=== PATIENT | female | born 1970 | race Caucasian/White ===

== ENCOUNTER → 2018-11-08 | Outpatient (CLI) | payer MEDICAID ==
[~2018-11-08] MED LIST: ALBU17AE3 IH; ALBU8.5H2 IH; BUDE6HFA IH; CLON0.5T3 PO; CLON1TAB3 PO; DULO60CA6 PO; ESCI20TA38 PO; ESTR1TAB24 PO; FERR-57 PO; HYDR-690 PO; LAMO100T PO; LAMO25TA PO; OXYC-12 PO; TRZ100T PO
--- NOTE | 2018-11-08 14:59 | Diagnostic Imaging Report ---
Left knee at 0126 hours. INDICATION: Knee pain. 4 views were obtained. There are no prior studies available for comparison. FINDINGS: There is no fracture, dislocation or acute bony abnormality evident. However, there is fairly severe narrowing of the medial compartment of the knee joint and at least moderate narrowing of the patellofemoral space. The lateral compartment is well maintained. The soft tissues are unremarkable. IMPRESSION: 1. There is no evidence for an acute bony abnormality. 2. There is degenerative disease involving the knee joint with the medial compartment the most severely affected. Dictated by: Dictated on workstation # [id number]
== END ==
LOC: RAD FS 13:19
PROVIDERS: ATTEND Nurse Practitioner
DX: M17.12 Unilateral primary osteoarthritis, left knee (principal)
CPT/HCPCS: 73562

== ENCOUNTER 2019-04-29 08:48 | Day surgery (SDC) | payer MEDICAID ==
[2019-04-29] VITALS (20 sets, daily range): BP systolic 101–139; BP diastolic 71–94
[~2019-04-29] VITALS: Ht 157.5 cm; Wt 66.7 kg
[~2019-04-29 08:48] MED LIST changes: +HEParin (CATH LAB) 1,000 ML IV ONE; +LIDOCAINE 1% INJ 20 ML 20 ML VIAL ONE
[2019-04-29] MEDS ORDERED: NS IV 1000 ML 1,000 ML IV SCH (08:51)
[2019-04-29] MEDS ORDERED: ISOPROTERENOL 0.2 MG/D5W 50 ML IV ONE (09:00)
[2019-04-29] MEDS ORDERED: fentaNYL INJECTION 100 MCG/2 ML AMP ONE (09:12)
[2019-04-29] MEDS ORDERED: MIDAZOLAM 5 MG/5 ML (VERSED) VIAL ONE (09:12)
[2019-04-29] MEDS ORDERED: PROPOFOL DRIP (ICU) 100 ML IV ONE (09:12)
[2019-04-29] MEDS ORDERED: DILT120C53 PO (09:19)
[2019-04-29] MEDS ORDERED: DESV50TA14 PO (09:19)
[2019-04-29] MEDS ORDERED: ROPI3TAB4 PO (09:19)
[2019-04-29] MEDS ORDERED: LISI10TA2 PO (09:19)
[2019-04-29] MEDS ORDERED: FLUT9.9S NS (09:19)
[2019-04-29] MEDS ORDERED: FLUT1AER IH (09:19)
[2019-04-29] MEDS ORDERED: CYCL10TA9 PO (09:19)
[2019-04-29] MEDS ORDERED: TRAM50TA2 PO (09:19)
[2019-04-29] MEDS ORDERED: GABA-490 PO (09:19)
[2019-04-29 09:22] LABS: HEMOGLOBIN 13.9 G/DL (11.5-16.0); MEAN PLATELET VOLUME 10.1 FL (7.4-10.4); WHITE BLOOD COUNT 7.2 10^3/uL (4.3-11.0)
[2019-04-29 09:33] LABS: INR 0.9 (0.8-1.4); PROTHROMBIN TIME PATIENT 12.1 SEC (12.2-14.7)
[2019-04-29 09:39] LABS: ALANINE AMINOTRANSFERASE 8 U/L (0-55); ALBUMIN 4.4 GM/DL (3.2-4.5); ALKALINE PHOSPHATASE 122 U/L (40-136); BILIRUBIN,TOTAL 0.3 MG/DL (0.1-1.0); BUN/CREATININE RATIO 14; CALCIUM 9.2 MG/DL (8.5-10.1); CARBON DIOXIDE 24 MMOL/L (21-32); CHLORIDE 107 MMOL/L (98-107); CREATININE SERUM 0.78 MG/DL (0.60-1.30); GFR ESTIMATED > 60; GLUCOSE 81 MG/DL (70-105); POTASSIUM 4.1 MMOL/L (3.6-5.0); SODIUM 139 MMOL/L (135-145); TOTAL PROTEIN 7.6 GM/DL (6.4-8.2)
[2019-04-29] MEDS ORDERED: LIDOCAINE 1% INJ 20 ML 20 ML VIAL ONE (12:16)
--- NOTE | 2019-04-29 12:31 | Electrophysiology Procedure ---
EP Procedure DATE OF SERVICE:04/29/19 REFERRING PHYSICIAN: CARDIAC SHEARER OPERATOR: Tae Littlejohn MD, RS, CCDS. INDICATION: palpitations, dizziness, possible SVT PREOPERATIVE DIAGNOSIS: palpitations, dizziness, possible SVT POSTOPERATIVE DIAGNOSES: third-degree AV block. HISTORY: this is a 49-year-old lady who presented to me in the office with history of SVT. She complained of palpitations, shortness of breath and dizziness.The patient is planned for comprehensive EP study and ablation. PROCEDURE PERFORMED: 1. Comprehensive EP study with induction. 2. Fluoroscopy. 3. left atrial pacing and recording. 4. Drug infusion. 5. temporary pacemaker placement. COMPLICATION: None. ESTIMATED BLOOD LOSS: 10 mL. CONTRAST USED: None. FLUOROSCOPY TIME: 9.9 minutes. FLUOROSCOPY DOSE: 92 mgy. SPECIMENS: None. ANESTHESIA: Done by our anesthesia colleagues. ANTICOAGULATION: none. PROCEDURE IN DETAIL: After informed consent was taken, the patient was brought to the EP lab. Anesthesia was provided by our anesthesia colleagues. The patient was draped and prepped in the usual sterile fashion. The patient presented to the EP lab in sinus rhythm. Access was gained in the right femoral vein with a 6-Gibraltarian and an 8-Gibraltarian sheath. Left access in left femoral vein was gained with 5-Gibraltarian and 6-Gibraltarian sheath respectively. High right atrial catheter was an Kriss catheter, right ventricular catheter was placed, his catheter and the CS catheter were also placed. A comprehensive EP study was done including left atrial pacing and recording. AV Wenckebach cycle length at pacing 510 ms. Retrograde Wenckebach when pacing at 670 ms. RV pacing demonstrated concentric atrial activation. Complete heart block was noted with ventricular escape of 30 BPM. Systolic blood pressure of 80-90 mmHg. Intermittent second-degree AV block also noted which was AV mervin in origin. Isuprel was started at 2 g per minute. Atrial rate of 140 bpm with 2:1 AV block and ventricular rate of 70 BPM. left atrial pacing and recording did not demonstrate any left lateral pathway. Rapid atrial pacing with the without Isuprel infusion did not induce any tachycardia. Dual AV mervin physiology was not demonstrated during ERP measurements. AV mervin ERP was 600/490 ms. since the patient continued to be in 2-1 AV block with systolic blood pressure 90 mmHg, we decided to put in a temporary pacemaker. Temporary pacemaker was placed through one of the 6 Gibraltarian sheath in the right femoral vein. Good capture and sensitivity was confirmed. Set at back up rate of 50 bpm. At the end of the procedure we noted 1:1 AV conduction at atrial rate of 108 bpm. The patienttolerated the procedurewell and did not have any complication. The patientleft the lab in sinus rhythm. MEASUREMENTS/EP STUDY: AA interval 696 ms, AH interval 140 ms, HV interval 36 ms, MI interval 140 ms, QRS duration 84 ms, QT interval 290 ms, R-R interval 694 ms, AV Wenckebach when pacing at 510 ms, Retrograde Wenckebach when pacing at 660 ms, AV mervin ERP was 600/490 ms, Complete heart block and second-degree heart block was noted. PLAN: The patient will be kept in the ICU overnight. Permanent pacemaker likely tomorrow. Tae Littlejohn MD, RS, CCDS Cardiac Electrophysiology Melo LITTLEJOHN MD Apr 29, 2019 12:31
--- NOTE | 2019-04-29 12:31 | Cardiac Procedure Note-CS/ASA ---
Pre-Procedure Note Pre-Op Procedure Note H&P Reviewed The H&P was reviewed, patient examined and no changes noted. Date H&P Reviewed: Apr 29, 2019 Time H&P Reviewed: 09:30 Conscious Sedation Pre-Proced Time 09:30 ASA Score 3 For ASA 3 and 4: Consider anesthesia and medical clearance. Also, for patients with a history of failed moderate sedation consider anesthesia. Airway Lungs Heart ASA score ASA 1: a normal healthy patient ASA 2: a patient with a mild systemic disease (mid diabetes, controlled hypertension, obesity ASA 3: a patient with a severe systemic disease that limits activity (angina, COPD, prior Myocardial infarction) ASA 4: a patient with an incapacitating disease that is a constant threat to life (CHF, renal failure) ASA 5: a moribund patient not expected to survive 24 hrs. (ruptured aneurysm) ASA 6: a declared brain- patient whose organs are being harvested. For emergent operations, add the letter E after the classification Mallampati Classification Grade 1 Sedation Plan Analgesia, Amnesia, Plan communicated to team members, Discussed options with patient/fam, Discussed risks with patient/fam The patient is an appropriate candidate to undergo the planned procedure, sedation, and anesthesia. The patient immediately re-assessed prior to indication. Melo FARIAS MD Apr 29, 2019 12:31
[2019-04-29] MEDS ORDERED: PATIENT MAY USE OWN MEDS, ALL PO SCH (12:45)
[2019-04-29] MEDS ORDERED: diphenhydrAMINE 25 MG TAB (BENADRYL) PO PRN (15:00)
[2019-04-29] MEDS: NS IV 1000 ML 1,000 ML IV SCH ×2 (15:08→20:32)
[2019-04-29] MEDS: fentaNYL INJECTION 100 MCG/2 ML AMP IVP PRN ×2 (19:00→22:00)
[2019-04-30] VITALS (19 sets, daily range): BP systolic 105–151; BP diastolic 75–100
[2019-04-30] MEDS: fentaNYL INJECTION 100 MCG/2 ML AMP IVP PRN ×3 (01:44→09:54)
[2019-04-30] MEDS: NS IV 1000 ML 1,000 ML IV SCH ×2 (07:26→18:02)
--- NOTE | 2019-04-30 07:32 | Anesthesia-General Post-Op ---
MAC Patient Condition Mental Status/LOC: Same as Preop Cardiovascular: Satisfactory Nausea/Vomiting: Absent Respiratory: Satisfactory Pain: Controlled Complications: Absent Post Op Complications Complications None Follow Up Care/Instructions Patient Instructions None needed. Anesthesiology Discharge Order Discharge Order Patient is doing well, no complaints, stable vital signs, no apparent adverse anesthesia problems. No complications reported per nursing. MIKE NOVOA CRNA Apr 30, 2019 07:31
[2019-04-30] MEDS ORDERED: LIDOCAINE 1% INJ 20 ML 20 ML VIAL ONE (07:48)
[2019-04-30] MEDS ORDERED: HEParin (CATH LAB) 1,000 ML IV ONE (07:48)
--- NOTE | 2019-04-30 09:30 | NUR ---
TEMP PACER DC'D INTACT PER ME. SHEATH DC'D PER ME. MANUAL PRESSURE HELD FOR 8 MINUTES. DRSG APPLIED. NO BLEEDING OR HEMATOMA NOTED. INSTRUCTED LUZ BLAIR PATIENT CAN GET UP IN 45 MINUTES. #20 IV STARTED IN L FOREARM WITH ULTRASOUND, 1 ST ATTEMPT, STARTED FOR PACEMAKER INSERTION THIS AFTERNOON.
--- NOTE | 2019-04-30 13:31 | Cardiology Progress Note ---
Cardiology SOAP Progress Note Subjective: No symptoms. Objective: I&O/Vital Signs 04/30/19 04/30/19 04/30/19 04/30/19 02:00 03:00 04:00 04:00 Pulse 65 77 77 Resp 17 14 14 B/P (MAP) 109/75 (86) 105/87 (93) 121/87 (98) Pulse Ox 96 98 97 O2 Delivery Room Air Room Air Room Air Room Air 04/30/19 04/30/19 04/30/19 04/30/19 05:00 06:00 07:00 07:00 Pulse 68 70 63 60 Resp 24 12 12 B/P (MAP) 125/91 (102) 137/83 (101) 122/90 (101) Pulse Ox 97 96 O2 Delivery Room Air Room Air Room Air 04/30/19 04/30/19 04/30/19 04/30/19 08:00 08:00 09:00 10:00 Pulse 61 63 66 Resp 16 13 15 B/P (MAP) 129/90 (103) 137/89 (105) 141/92 (108) Pulse Ox 97 97 99 98 O2 Delivery Room Air Room Air Room Air Room Air 04/30/19 04/30/19 04/30/19 04/30/19 11:00 12:00 12:00 12:10 Pulse 61 59 57 Resp 13 20 B/P (MAP) 134/81 (98) 128/88 (101) Pulse Ox 95 96 O2 Delivery Room Air Room Air Room Air 04/29/19 23:59 Intake Total 100 ml Output Total 740 ml Balance -640 ml Weight (Pounds): 146 Weight (Ounces): 0.0 Weight (Calculated Kilograms): 66.603815 Constitutional: No appears stated age; AAO x 3; No apparent distress, No PERRL, No well-developed, No well-nourished, No other Respiratory: No accessory muscle use, No respiratory distress, No chest tender, No chest expansion is symmetric; chest is bilaterally symmetric; No lungs clear to percussion; lungs clear to auscultation; No crackles, No rhonchi, No rales, No stridor, No wheezing, No pleural rub, No other Cardiovascular: regular rate-rhythm; No irregularly irregular, No extra beats, No parasternal heave is noted, No JVD, No edema, No bradycardia, No tachycardia, No point of maximal impulse, No cardiac thrills are palpable; S1 and S2; No gallop/S3, No gallop/S4, No diastolic murmur, No systolic murmur, No friction rub, No click, No other Gastrointestional: No tender, No soft, No round, No distended, No pulsatile mass, No organomegaly, No guarding, No rebound, No tenderness, No hernia, No mass, No audible bowel sounds, No abnormal bowel sounds, No abdominal bruits, No spleenomegaly, No other Extremities: No normal range of motion, No non-tender, No normal inspection, No pedal edema, No calf tenderness, No normal capillary refill, No pelvis stable, No calf tenderness, No inflammation, No pedal edema, No slow capillary refill, No swelling, No other, No abrasion, No clubbing, No cyanosis, No ecchymosis, No laceration, No no lower extremity edema bilateral, No significant edema, No tenderness, No wound Neurologic/Psychiatric: no motor/sensory deficits, alert, normal mood/affect, oriented x 3 Skin: No normal color, No warm/dry, No cyanosis, No cool, No diaphoresis, No damp, No ecchymosis, No jaundice, No mottled, No pallor, No rash, No tattoos/piercings, No ulcerations, No rash on exposed areas, No ulcerations on exposed areas, No other A/P: Assessment/Dx: PSVT, Transient third-degree AV block, Second degree heart block, Plan: Status post EP study which demonstrated transient third-degree AV block with systolic blood pressure below 90 mmHg. Also prolonged second-degree heart block. Blood pressure also was below 100 mmHg. Temporary pacemaker was placed. Overnight patient continued to be in sinus rhythm with 1:1 AV conduction. Stable blood pressure. We will take out the temporary pacemaker today. Plan for permanent pacemaker later this afternoon. I discussed at length with the patient and informed consent was taken. All risks and complication were explained in detail including pneumothorax, bleeding, cardiac damage. Thank you for your consultation. Please call me if you have any questions. Tae Littlejohn MD, FACP, FACC, FSCAI, FHRS, CCDS Interventional Cardiology Cardiac Electrophysiology Vascular Medicine and Endovascular Interventions Melo LITTLEJOHN MD Apr 30, 2019 13:31
[2019-04-30] MEDS ORDERED: BACITRACIN INJECTION 50,000 UNIT, SODIUM CHLORIDE 0.9% IRRIGATIO 500 ML IR ONE ×2 (14:15)
[2019-04-30] MEDS ORDERED: ceFAZolin INJECTION 1,000 MG VIAL IV ONE (14:15)
[2019-04-30] MEDS ORDERED: ceFAZolin INJECTION 1,000 MG in WATER (STERILE) FOR INJECTION 10 ML IV NR (14:30)
[2019-04-30] MEDS ORDERED: BACITRACIN 50000 UNITS/500 ML NS IR ONE ×2 (14:30)
[2019-04-30] MEDS ORDERED: fentaNYL INJECTION 100 MCG/2 ML AMP ONE ×2 (16:08→16:34)
[2019-04-30] MEDS ORDERED: MIDAZOLAM 5 MG/5 ML (VERSED) VIAL ONE ×2 (16:08→16:34)
[2019-04-30] MEDS ORDERED: NS (IVPB) 100 ML ONE (16:22)
[2019-04-30] MEDS ORDERED: ceFAZolin INJECTION 2,000 MG ONE (16:22)
[2019-04-30] MEDS ORDERED: HYDROmorphone 2 MG/ML VIAL (DILAUDID) ONE (16:34)
[2019-04-30] MEDS ORDERED: NEO/POLY/BAC (NEOSPORIN) OINT 15 GM TUBE ONE (17:50)
[2019-04-30] MEDS ORDERED: NS IV 1000 ML 1,000 ML IV SCH (18:09)
--- NOTE | 2019-04-30 18:09 | Permanent Pacemaker Implant ---
Dual Chamber Pacemaker Implant PROCEDURE PHYSICIAN: Tae Littlejohn MD DUAL CHAMBER PACEMAKER IMPLANTATION: DATE OF PROCEDURE: 04/30/19 INDICATION: transient complete heart block. PREOPERATIVE DIAGNOSIS: transient complete heart block. POSTOPERATIVE DIAGNOSIS: successful dual-chamber permanent pacemaker implantation. HISTORY: this is a 49-year-old lady who has history of SVT. She presented for EP study and possible PSVT ablation. During EP study she was found to be in transient third-degree AV block. It then converted to AV mervin second-degree AV block. Blood pressure during third-degree AV block was 80 mmHg. Blood pressure during second-degree heart block was 90 mmHg. Isuprel was given which increased the atrial rate to 140 BPM with 2-1 AV block with ventricular rate of 70 BPM. Temporary pacemaker was placed. However at the end of the procedure patient AV conduction was 1:1. Dual-chamber permanent pacemaker was recommended. PROCEDURE PERFORMED: 1. Dual-chamber permanent pacemaker implantation. 2. Fluoroscopy. 3. Central venous access. ANESTHESIA: Local anesthesia, conscious sedation. COMPLICATIONS: None. ESTIMATED BLOOD LOSS:20 mL. SPECIMENS: None. ORAL ANTICOAGULATION: None. FLUOROSCOPY TIME: 6.2 min. FLUOROSCOPY DOSE: 20 mgy. CONTRAST DOSE: none. PROCEDURE DETAILS: The patient is a 49 female and after all of the patients questions were answered, the patient was brought to the EP Lab. The patient's left chest was prepped and draped in sterile fashion. A 2 inch horizontal incision was made 1 cm below the clavicle and dissection carried down to the pectoralis fascia. Using the modified Seldinger technique and under fluoroscopy guidance, the anterior aspect of the left axillary vein was accessed 2 times. The J wires were secured to the drapes with a mosquito clamp. A 7-St Helenian sheath was introduced over one of the J-wires. The RV lead was then inserted. The RV lead was directed across the tricuspid valve to the apical septal portion of the right ventricle. The position was checked in HIREN and FAUST views. The screw was deployed and the lead connected to the software programmer. Close sensing and pacing thresholds were obtained. Diaphragmatic pacing was ruled out. The lead was secured with 2-0 silk ties to the underlying muscle and fascia. Next, a 7-St Helenian sheath was introduced through the remaining J-wire. An atrial lead was then introduced and guided to the level of the right appendage. The screw was deployed and the lead was connected to the interrogator. Good sensing and pacing thresholds were obtained. Diaphragmatic pacing was ruled out. The leads were secured with 2-0 silk ties to the underlying muscle and fascia. The leads were connected to the device in a hermetic fashion. The device and leads were placed in the pocket. Aggressive irrigation with saline solution was done. The device was secured to the underlying muscle and fascia with a 2-0 silk tie. interrogation of the device revealed good integrity of all the leads and good connections. The wound was then closed using 2 layers. The first layer was interrupted 2-0 absorbable Vicryl suture. The last layer was a single subcuticular layer with 4- 0 Vicryl suture. Half inch Steri-Strips and a small dressing were then applied to the wound. The patient tolerated the procedure well and was returned to the recovery room in stable condition with stable vital signs. DEVICE INFORMATION: Medtronic IPG [id number] Ella JARAMILLO, serial number RN [id number]. RA LEAD: model number [id number], length 45, serial number BB [id number]. Medtronic. RV LEAD: model number [id number], length 52, serial number PEJ and [id number], Medtronic. PER-OPERATIVE DEVICE INTERROGATION: right atrium: 1.375 at 0.4 ms, impedance 532 ohms, P-wave 1.4 mV. Right ventricle: 0.375 at 0.4 ms, impedance 437 ohms, R-wave 7.4 mV. IMMEDIATE POSTOPERATIVE DEVICE INTERROGATION: right atrium: P-wave 1.5 mV. Pacing impedance 532 ohms. Pacing threshold 1.0 V at 0.4 ms. RV: R wave 8.5 mV. Pacing impedance 456 ohms. Pacing threshold 0.5 V at 0.4 ms. On the right atrial lead far field R-wave was noted. This fell in the blanking period. PLAN: The patient transferred to the ICU. We will continue with two more doses of IV antibiotics. We will check a chest x-ray and interrogate the device in the morning. The patient will continue on oral antibiotics for 5 days. Tae Littlejohn MD, RS, CCDS Cardiac Electrophysiology Melo LITTLEJOHN MD Apr 30, 2019 18:09
--- NOTE | 2019-04-30 18:09 | Cardiac Procedure Note-CS/ASA ---
Pre-Procedure Note Pre-Op Procedure Note H&P Reviewed The H&P was reviewed, patient examined and no changes noted. Date H&P Reviewed: Apr 30, 2019 Time H&P Reviewed: 16:00 Conscious Sedation Pre-Proced Time 16:00 ASA Score 3 For ASA 3 and 4: Consider anesthesia and medical clearance. Also, for patients with a history of failed moderate sedation consider anesthesia. Airway Lungs Heart ASA score ASA 1: a normal healthy patient ASA 2: a patient with a mild systemic disease (mid diabetes, controlled hypertension, obesity ASA 3: a patient with a severe systemic disease that limits activity (angina, COPD, prior Myocardial infarction) ASA 4: a patient with an incapacitating disease that is a constant threat to life (CHF, renal failure) ASA 5: a moribund patient not expected to survive 24 hrs. (ruptured aneurysm) ASA 6: a declared brain- patient whose organs are being harvested. For emergent operations, add the letter E after the classification Mallampati Classification Grade 1 Sedation Plan Analgesia, Amnesia, Plan communicated to team members, Discussed options with patient/fam, Discussed risks with patient/fam The patient is an appropriate candidate to undergo the planned procedure, sedation, and anesthesia. The patient immediately re-assessed prior to indication. Melo FARIAS MD Apr 30, 2019 18:09
[2019-04-30] MEDS ORDERED: PATIENT MAY USE OWN MEDS, ALL PO SCH (18:15)
--- NOTE | 2019-04-30 18:40 | NUR ---
Pt returned from pacemaker placement. Sling placed on Lt arm et ice pack to drsg. Drsg on Lt upper chest, c/d/i. Pt ambulated to void. Sat dropped to 72%. Pt placed on O2 2L NC et sat instantly increased to 95%. Will continue to monitor
--- NOTE | 2019-04-30 18:46 | Diagnostic Imaging Report ---
INDICATION: Pacemaker placement. COMPARISON: None. FINDINGS: Single view of the chest demonstrates cardiac enlargement without overt pulmonary edema. There is no pneumothorax or effusion. The cardiac pacemaker appears to be well positioned. IMPRESSION: No post-procedure pneumothorax. Dictated by: Dictated on workstation # [id number]
[2019-04-30] MEDS: ceFAZolin INJECTION 1,000 MG in WATER (STERILE) FOR INJECTION 10 ML IV SCH (21:39)
[2019-04-30] MEDS ORDERED: ACETAMINOPHEN 325 MG TABLET ONE (22:50)
[2019-04-30] MEDS: ACETAMINOPHEN 325 MG TABLET PO PRN (22:58)
[2019-05-01] VITALS: BP 140/86
[2019-05-01 02:00] VITALS: BP 125/90
[2019-05-01] MEDS: fentaNYL INJECTION 100 MCG/2 ML AMP IVP PRN (02:32)
[2019-05-01 03:57] LABS: HEMOGLOBIN 12.6 G/DL (11.5-16.0); MEAN PLATELET VOLUME 10.3 FL (7.4-10.4); RED CELL DISTRIBUTION WIDTH 12.7 % (10.0-14.5); WHITE BLOOD COUNT 10.8 10^3/uL (4.3-11.0)
[2019-05-01 04:00] VITALS: BP 140/91
[2019-05-01 04:26] LABS: ALANINE AMINOTRANSFERASE 6 U/L (0-55); ALBUMIN 3.5 GM/DL (3.2-4.5); ALKALINE PHOSPHATASE 107 U/L (40-136); BILIRUBIN,TOTAL 0.2 MG/DL (0.1-1.0); BUN/CREATININE RATIO 13; CALCIUM 8.9 MG/DL (8.5-10.1); CARBON DIOXIDE 19 MMOL/L (21-32); CHLORIDE 111 MMOL/L (98-107); CREATININE SERUM 0.71 MG/DL (0.60-1.30); GFR ESTIMATED > 60; GLUCOSE 91 MG/DL (70-105); POTASSIUM 4.1 MMOL/L (3.6-5.0); SODIUM 140 MMOL/L (135-145); TOTAL PROTEIN 6.3 GM/DL (6.4-8.2)
[2019-05-01 06:00] VITALS: BP 135/98
[2019-05-01] MEDS: ceFAZolin INJECTION 1,000 MG in WATER (STERILE) FOR INJECTION 10 ML IV SCH (07:03)
[2019-05-01] MEDS: NS IV 1000 ML 1,000 ML IV SCH (07:05)
[2019-05-01] MEDS: ACETAMINOPHEN 325 MG TABLET PO PRN (08:13)
[2019-05-01] MEDS ORDERED: CEPH-507 PO (09:50)
[2019-05-01 10:17] VITALS: BP 152/87
--- NOTE | 2019-05-01 13:21 | Cardiology Discharge Summary ---
Diagnosis/Chief Complaint Date of Admission 04/29/2019 Date of Discharge 05/01/2019 Admission Diagnosis 1. PSVT 2. Third-degree AV block with hypotension Final/Discharge Diagnosis Third-degree AV block, successful dual-chamber permanent pacemaker. Chief Complaint/HPI Chief Complaint/HPI This is a 49-year-old lady who has history of SVT. She had complains of palpitations and dizziness. EP study was planned. Discharge Summary Procedures 04/29/2019 EP study showed third-degree AV block with hypotension. Converted to second-degree AV block with borderline hypotension. No significant improvement with Isuprel. Temporary pacemaker was placed. Atrial tachycardia was not induced on Isuprel. Dual AV mervin physiology was not demonstrated. Left atrial pacing and recording did not demonstrate a left-sided bypass tract. Dual-chamber permanent pacemaker was done on 04/30/2019. Discharge Physical Examination Stable. Hospital Course Was the Problem List Reviewed?: Yes Unremarkable. Discussion & Recommendations Discussion Discharge instructions were discussed at length. Discharge took over 30 minutes to complete. Antibiotics for 5 days. Follow up appt.: Wound check with RN in one week. Dr. Littlejohn for device interrogation in a month. Dicharge Diet: Regular Diet Activity as Tolerated: Yes Home Medications Reviewed patient Home Medication Reconciliation performed by pharmacy medication reconciliations copier field service technician and/or nursing. Patients Allergies have been reviewed. Discharge Home Medications: Reviewed and agree with Discharge Medication list on patient's Discharge Instruction sheet Condition at discharge Stable. Instructions to patient/family Discussed at length with the patient. Melo LITTLEJOHN MD May 01, 2019 13:21
--- NOTE | 2019-05-01 13:22 | Discharge Inst-Post Device ---
Discharge Inst-Post Device Reconcile Patient Problems Problems Reviewed?: Yes Follow up/Plan Dr Littlejohn Heart Healthy Diet Do not lift arm on side of device placement above head for 4 weeks. Do not push and pull heavy objects for 4 weeks. Activity as tolerated. Leave dressing on until follow up at the office. Melo LITTLEJOHN MD May 01, 2019 13:22
== END 2019-05-01 10:16 | disposition home or self-care (01) ==
LOC: CATH 08:48 → ICU 13:22 → CATH 05-01 10:16
PROVIDERS: ATTEND Internal Medicine Interventional Cardiology
DX: I44.2 Atrioventricular block, complete (principal); I95.9 Hypotension, unspecified; I47.1 Supraventricular tachycardia; I10 Essential (primary) hypertension; J44.9 Chronic obstructive pulmonary disease, unspecified; F17.210 Nicotine dependence, cigarettes, uncomplicated; Z79.899 Other long term (current) drug therapy; Z88.5 Allergy status to narcotic agent
CPT/HCPCS: 33208; 33210; 36415; 71045; 80053; 85027; 85610; 85730; 87081; 93005; 93620; 93621; 93623

== ENCOUNTER 2019-05-20 14:06 | Emergency (ER) | payer MEDICAID ==
[~2019-05-20] VITALS: Ht 158 cm; Wt 62.0 kg
[~2019-05-20 14:06] MED LIST changes: +CEPH-507 PO; +CYCL10TA9 PO; +DESV50TA14 PO; +DILT120C53 PO; +FLUT1AER IH; +FLUT9.9S NS; +GABA-490 PO; -HEParin (CATH LAB) 1,000 ML IV ONE; -LIDOCAINE 1% INJ 20 ML 20 ML VIAL ONE; +LISI10TA2 PO; +ROPI3TAB4 PO; +TRAM50TA2 PO
--- NOTE | 2019-05-20 16:00 | ED Chest Pain ---
General Chief Complaint: Cardiac/General Problems Stated Complaint: PACE MAKER SHOCKING PT; CHEST PAIN Source: patient Exam Limitations: no limitations History of Present Illness Date Seen by Provider: May 20, 2019 Time Seen by Provider: 12:00 Initial Comments Patient is a 49-year-old female presents from work with left-sided scapular pain started while sitting. Pain is described as intense, aching lasting less than 30 seconds. Following which, patient reports feeling generally weak, malaise with nausea take. Denies chest pain shortness of breath, vomiting, arm or paresthesias. No abdominal pain. No other acute symptoms or complaints. Denies history of CAD. Cardiac neck risk factors include dyslipidemia and hypertension. Patient is a nonsmoker. Timing/Duration: 1-3 hours Severity/Quality: moderate Location: shoulder Radiation: no radiation Activities at Onset: none Prior CP/Workup: no prior chest pain NTG SL CONSUMER EDUCATOR: No Associated Symptoms: back pain, diaphoresis, dizziness, nausea/vomiting, weakness Allergies and Home Medications Allergies Coded Allergies: aspirin (Unverified Allergy, Unknown, RASH, 04/29/19) codeine (Verified Allergy, Unknown, 04/29/19) Home Medications Albuterol 8.5 Gm Hfa.aer.ad, 2 PUFF IH Q6H PRN, (Reported) PRN SHORTNESS OF BREATH Cephalexin 500 Mg Capsule, 500 MG PO TID Prescribed by: HANDY MENDEZ on 05/01/19 0950 Cyclobenzaprine HCl 10 Mg Tablet, 10 MG PO PRN, (Reported) Desvenlafaxine 50 Mg Tab.er.24, 50 MG PO DAILY, (Reported) Diltiazem HCl 120 Mg Cap.er.24h, 120 MG PO BID, (Reported) Fluticasone Propionate 9.9 Ml [place].susp, 1 SPRAY NS DAILY PRN for PRN, (Reported) 1 SPRAY EACH NARE DAILY Fluticasone/Vilanterol 1 Each Blst.w.dev, 1 EACH IH DAILY, (Reported) Gabapentin 400 Mg Capsule, 400 MG PO TID, (Reported) Lisinopril 10 Mg Tablet, 10 MG PO DAILY, (Reported) Ropinirole HCl 3 Mg Tablet, 3 MG PO HS, (Reported) Tramadol HCl 50 Mg Tablet, 50 MG PO PRN, (Reported) Trazodone Hcl 100 Mg Tab, 100 MG PO HS, (Reported) Patient Home Medication List Home Medication List Reviewed: Yes Review of Systems Review of Systems Constitutional: see HPI EENTM: See HPI Respiratory: See HPI Cardiovascular: See HPI Gastrointestinal: See HPI Genitourinary: See HPI Musculoskeletal: see HPI Psychiatric/Neurological: See HPI Endocrine: See HPI Hematologic/Lymphatic: See HPI Past Nocwiim-Azegpi-Bmpugy Hx Past Med/Social Hx: Reviewed Nursing Past Med/Soc Hx Patient Social History Type Used: Cigarettes Recent Hopitalizations: No Immunizations Up To Date Tetanus Booster (TDap): More than 5yrs Date of Pneumonia Vaccine: Feb 20, 2013 Past Medical History Hysterectomy Respiratory: Yes Asthma, COPD Cardiac: No Neurological: Yes Reproductive Disorders: Yes (MILEY III) Genitourinary: No Gastrointestinal: No Cancer: No Anxiety, Bipolar, Depression Blood Disorders: No Physical Exam Vital Signs Capillary Refill : Height, Weight, BMI Height: 5'2.00" Weight: 147lbs. 0.0oz. 66.649817ps; 24.7 BMI Method: General Appearance: No Apparent Distress, WD/WN HEENT: PERRL/EOMI, Normal ENT Inspection, Pharynx Normal Neck: Full Range of Motion, Non Tender, Supple Respiratory: Lungs Clear, Normal Breath Sounds Cardiovascular: Regular Rate, Rhythm, No Edema Gastrointestinal: Normal Bowel Sounds Neurologic/Psychiatric: Alert, Oriented x3 Focused Exam Sepsis Stage: Ruled Out Departure Communication (Admissions) EKg, lab and imaging reviewed. No acute findings. Patient has a heart score of 1. Repeat troponin is negative. Recommend supportive care watchful waiting and PCP follow-up. Return precautions reviewed. Patient verbalizes understanding. Discharge instructions prior to departure. Impression Primary Impression: Chest pain Disposition: HOME, SELF-CARE Condition: Against Medical Advice Departure-Patient Inst. Referrals: [facility] (PCP/Family) Primary Care Physician Patient Instructions: Chest Pain (DC) Add. Discharge Instructions: You were evaluated in the emergency department for left shoulder pain and weakness. EKG lab and imaging studies were performed and are nondiagnostic. Cause of your symptoms has not been determined. Please go home and rest, increase fluids and follow-up with your PCP in 3-4 days for reevaluation. Return to ED if new or worsening symptoms. All discharge instructions reviewed with patient and/or family. Voiced understanding. KUSUM GUTIERREZ DO May 20, 2019 16:00
--- NOTE | 2019-05-20 16:25 | Diagnostic Imaging Report ---
INDICATION: Chest pain. COMPARISON: 04/30/2019. FINDINGS: A single frontal view of the chest demonstrates normal heart size and pulmonary vascularity. The lungs are well aerated and clear. No large pleural effusion or pneumothorax is seen. The visualized osseous structures show no acute abnormalities. A left-sided dual-lead pacemaker is noted. IMPRESSION: No acute cardiopulmonary process. Dictated by: Dictated on workstation # [id number]
[2019-05-20 16:42] LABS: BUN/CREATININE RATIO 10; CALCIUM 10.1 MG/DL (8.5-10.1); CARBON DIOXIDE 28 MMOL/L (21-32); CHLORIDE 100 MMOL/L (98-107); CREATININE SERUM 0.96 MG/DL (0.60-1.30); GFR ESTIMATED > 60; GLUCOSE 96 MG/DL (70-105); POTASSIUM 4.9 MMOL/L (3.6-5.0); SODIUM 139 MMOL/L (135-145)
[2019-05-20 16:43] LABS: ALANINE AMINOTRANSFERASE 9 U/L (0-55); ALBUMIN 4.6 GM/DL (3.2-4.5); ALKALINE PHOSPHATASE 108 U/L (40-136); BILIRUBIN,TOTAL < 0.2 MG/DL (0.1-1.0); LIPASE 25 U/L (8-78); TOTAL PROTEIN 7.4 GM/DL (6.4-8.2)
[2019-05-20 16:44] LABS: HEMOGLOBIN 13.5 G/DL (11.5-16.0); MEAN PLATELET VOLUME 10.7 FL (7.4-10.4); RED CELL DISTRIBUTION WIDTH 12.3 % (10.0-14.5); WHITE BLOOD COUNT 8.6 10^3/uL (4.3-11.0)
[2019-05-20 17:15] VITALS: BP 121/78
--- NOTE | 2019-05-20 17:30 | ED Chest Pain ---
General Chief Complaint: Cardiac/General Problems Stated Complaint: PACE MAKER SHOCKING PT; CHEST PAIN Source: patient Exam Limitations: no limitations History of Present Illness Date Seen by Provider: May 20, 2019 Time Seen by Provider: 13:20 Initial Comments Patient is a 49-year-old female with history of PSVT with recent cardiac abl ation and dual-chamber pacemaker insertion on on 04/30/[address] Littlejohn presents with intermittent stinging type sensation over her left breast. Patient states symptoms began this morning were brief lasting less than a second with 1-2 episodes every 5 minutes, then one episode every 20 minutes. Symptoms have since resolved. Patient denies chest pain palpitation shortness of breath. Denies dizziness or lightheadedness. No leg pain or swelling. No other acute symptoms or complaints. Timing/Duration: 1-3 hours Severity/Quality: mild Location: other Radiation: no radiation Activities at Onset: none Prior CP/Workup: cardiac cath ASA po VALET PARKER: No NTG SL VALET PARKER: No Allergies and Home Medications Allergies Coded Allergies: aspirin (Unverified Allergy, Unknown, RASH, 04/29/19) codeine (Verified Allergy, Unknown, 04/29/19) Home Medications Albuterol 8.5 Gm Hfa.aer.ad, 2 PUFF IH Q6H PRN, (Reported) PRN SHORTNESS OF BREATH Cephalexin 500 Mg Capsule, 500 MG PO TID Prescribed by: HANDY MENDEZ on 05/01/19 0950 Cyclobenzaprine HCl 10 Mg Tablet, 10 MG PO PRN, (Reported) Desvenlafaxine 50 Mg Tab.er.24, 50 MG PO DAILY, (Reported) Diltiazem HCl 120 Mg Cap.er.24h, 120 MG PO BID, (Reported) Fluticasone Propionate 9.9 Ml [place].susp, 1 SPRAY NS DAILY PRN for PRN, (Reported) 1 SPRAY EACH NARE DAILY Fluticasone/Vilanterol 1 Each Blst.w.dev, 1 EACH IH DAILY, (Reported) Gabapentin 400 Mg Capsule, 400 MG PO TID, (Reported) Lisinopril 10 Mg Tablet, 10 MG PO DAILY, (Reported) Ropinirole HCl 3 Mg Tablet, 3 MG PO HS, (Reported) Tramadol HCl 50 Mg Tablet, 50 MG PO PRN, (Reported) Trazodone Hcl 100 Mg Tab, 100 MG PO HS, (Reported) Patient Home Medication List Home Medication List Reviewed: Yes Review of Systems Review of Systems Constitutional: see HPI EENTM: See HPI Respiratory: See HPI Cardiovascular: See HPI Gastrointestinal: See HPI Genitourinary: See HPI Musculoskeletal: see HPI Psychiatric/Neurological: See HPI Endocrine: See HPI Hematologic/Lymphatic: See HPI Past Kntzfez-Xbvfdq-Dmmkll Hx Past Med/Social Hx: Reviewed Nursing Past Med/Soc Hx Patient Social History Type Used: Cigarettes Recent Hopitalizations: No Immunizations Up To Date Tetanus Booster (TDap): More than 5yrs Date of Pneumonia Vaccine: Feb 20, 2013 Past Medical History Hysterectomy Respiratory: Yes Asthma, COPD Cardiac: No Neurological: Yes Reproductive Disorders: Yes (MILEY III) Genitourinary: No Gastrointestinal: No Cancer: No Anxiety, Bipolar, Depression Blood Disorders: No Physical Exam Vital Signs Capillary Refill : Height, Weight, BMI Height: 5'2.00" Weight: 147lbs. 0.0oz. [id number]; 24.7 BMI Method: General Appearance: No Apparent Distress, WD/WN HEENT: PERRL/EOMI, Normal ENT Inspection, Pharynx Normal Neck: Supple Respiratory: Chest Non Tender, Lungs Clear, Normal Breath Sounds Cardiovascular: Regular Rate, Rhythm, No Edema, No Gallop Gastrointestinal: Non Tender, Soft Extremity: Normal Capillary Refill, Normal Inspection Neurologic/Psychiatric: Alert, Oriented x3, manager mail II-XII Norm as Tested Skin: Normal Color, Warm/Dry Progress/Results/Core Measures Results/Orders Lab Results Laboratory Tests Test 05/20/19 15:00 Range/Units White Blood Count 8.6 4.3-11.0 10^3/uL Red Blood Count 4.60 4.35-5.85 10^6/uL Hemoglobin 13.5 11.5-16.0 G/DL Hematocrit 41 35-52 % Mean Corpuscular Volume 89 80-99 FL Mean Corpuscular Hemoglobin 29 25-34 PG Mean Corpuscular Hemoglobin Concent 33 32-36 G/DL Red Cell Distribution Width 12.3 10.0-14.5 % Platelet Count 280 130-400 10^3/uL Mean Platelet Volume 10.7 H 7.4-10.4 FL Sodium Level 139 135-145 MMOL/L Potassium Level 4.9 3.6-5.0 MMOL/L Chloride Level 100 98-107 MMOL/L Carbon Dioxide Level 28 21-32 MMOL/L Anion Gap 11 5-14 MMOL/L Blood Urea Nitrogen 10 7-18 MG/DL Creatinine 0.96 0.60-1.30 MG/DL Estimat Glomerular Filtration Rate > 60 BUN/Creatinine Ratio 10 Glucose Level 96 70-105 MG/DL Calcium Level 10.1 8.5-10.1 MG/DL Corrected Calcium 8.5-10.1 MG/DL Total Bilirubin < 0.2 0.1-1.0 MG/DL Aspartate Amino Transf (AST/SGOT) 18 5-34 U/L Alanine Aminotransferase (ALT/SGPT) 9 0-55 U/L Alkaline Phosphatase 108 40-136 U/L Troponin I < 0.30 <0.30 NG/ML Total Protein 7.4 6.4-8.2 GM/DL Albumin 4.6 H 3.2-4.5 GM/DL Lipase 25 8-78 U/L My Orders Orders - KUSUM GUTIERREZ DO Cbc No Diff (05/20/19 16:05) Comprehensive Metabolic Panel (05/20/19 16:05) Lipase (05/20/19 16:05) Ekg Tracing (05/20/19 16:05) Troponin I (05/20/19 16:05) Chest 1 View Ap/Pa Only (05/20/19 16:05) Departure Communication (Admissions) EKG, chest x-ray labs reviewed. Patient asymptomatic emergency department. Case discussed in detail with Dr. Littlejohn. Recommendations are for the patient to contact his office tomorrow to arrange for outpatient pacemaker interrogation and follow-up in office this week. Return precautions reviewed. Patient verbalizes understanding and agreement discharge instructions prior to departure. Impression Primary Impression: Chest pain Disposition: HOME, SELF-CARE Condition: Improved Departure-Patient Inst. Referrals: [facility] (PCP) Primary Care Physician Patient Instructions: Chest Pain (DC) Add. Discharge Instructions: Please call Dr. Littlejohn's office in the morning and tell his office S your device type and schedule a follow-up appointment in the next will one to 2 days to have your pacemaker interrogated and to see Dr. Littlejohn. All discharge instructions reviewed with patient and/or family. Voiced unde rstanding. KUSUM GUTIERREZ DO May 20, 2019 17:30
== END 2019-05-20 17:15 | disposition home or self-care (01) ==
LOC: EDUNIT# 14:06 → ER FS 14:07
DX: R07.9 Chest pain, unspecified (principal); J44.9 Chronic obstructive pulmonary disease, unspecified; F31.9 Bipolar disorder, unspecified; F41.9 Anxiety disorder, unspecified; Z95.0 Presence of cardiac pacemaker; Z88.6 Allergy status to analgesic agent; Z88.5 Allergy status to narcotic agent; Z90.710 Acquired absence of both cervix and uterus
CPT/HCPCS: 36415; 71045; 80053; 83690; 84484; 85027; 93005

== ENCOUNTER 2019-09-04 15:01 | Emergency (ER) | payer SELFPAY ==
[~2019-09-04] VITALS: Ht 157.5 cm; Wt 61.4 kg
[2019-09-04] MEDS: NITROGLYCERIN 0.4 MG SL TABS BTL 25'S SL PRN ×2 (15:47→15:55)
--- NOTE | 2019-09-04 15:51 | Diagnostic Imaging Report ---
EXAMINATION: Chest 1 view HISTORY: Chest pain. COMPARISON: 05/20/2019 FINDINGS: A left pectoral dual-chamber pacemaker is in place. The lung volumes are normal. No focal consolidation is seen. No large pleural effusion or pneumothorax is seen. The cardiomediastinal silhouette is normal in size and contour. No acute osseous abnormality is seen. IMPRESSION: 1. No acute pleuroparenchymal process. Dictated by: Dictated on workstation # [id number]
[2019-09-04 15:56] LABS: INR 0.9 (0.8-1.4); PROTHROMBIN TIME PATIENT 12.2 SEC (12.2-14.7)
[2019-09-04 16:03] LABS: HEMATOCRIT 38 % (35-52); HEMOGLOBIN 12.9 G/DL (11.5-16.0); MEAN CORPUSCULAR HEMOGLOBIN 29 PG (25-34); MEAN CORPUSCULAR HGB CONC 34 G/DL (32-36); MEAN CORPUSCULAR VOLUME 86 FL (80-99); MEAN PLATELET VOLUME 10.4 FL (7.4-10.4); PLATELET COUNT 308 10^3/uL (130-400); WHITE BLOOD COUNT 8.7 10^3/uL (4.3-11.0)
[2019-09-04 16:04] LABS: BASOPHILS # (AUTO) 0.1 10^3/uL (0.0-0.1); BASOPHILS % (AUTO) 1 % (0-10); EOSINOPHILS # (AUTO) 0.2 10^3/uL (0.0-0.3); EOSINOPHILS % (AUTO) 2 % (0-10); LYMPHOCYTES # (AUTO) 2.3 X 10^3 (1.0-4.0); LYMPHOCYTES % (AUTO) 26 % (12-44); MONOCYTES # (AUTO) 0.5 X 10^3 (0.0-1.0); MONOCYTES % (AUTO) 6 % (0-12); NEUTROPHILS # (AUTO) 5.7 X 10^3 (1.8-7.8); NEUTROPHILS % (AUTO) 65 % (42-75)
[2019-09-04 16:09] LABS: ALKALINE PHOSPHATASE 98 U/L (40-136); BILIRUBIN,TOTAL 0.2 MG/DL (0.1-1.0); BUN/CREATININE RATIO 8; CALCIUM 9.2 MG/DL (8.5-10.1); CARBON DIOXIDE 24 MMOL/L (21-32); CHLORIDE 107 MMOL/L (98-107); CREATININE SERUM 0.77 MG/DL (0.60-1.30); GFR ESTIMATED > 60; GLUCOSE 99 MG/DL (70-105); MAGNESIUM 2.2 MG/DL (1.6-2.4); POTASSIUM 4.1 MMOL/L (3.6-5.0); SODIUM 143 MMOL/L (135-145)
[2019-09-04 16:10] LABS: ALANINE AMINOTRANSFERASE 11 U/L (0-55); ALBUMIN 4.2 GM/DL (3.2-4.5); LIPASE 26 U/L (8-78); TOTAL PROTEIN 6.9 GM/DL (6.4-8.2)
--- NOTE | 2019-09-04 16:14 | ED Chest Pain ---
General Chief Complaint: Chest Pain Stated Complaint: CHEST TIGHTNESS,LIGHT HEADED Nursing Triage Note: Patient reports chest pain since yesterday, states her pain has worsened today, states she has been out of her heart medication for 5 days and out of her valium prescription for 1 month. Nursing Sepsis Screen: No Definite Risk Source: patient History of Present Illness Date Seen by Provider: Sep 04, 2019 Time Seen by Provider: 15:15 Initial Comments Patient came into the emergency room with complaint of having left-sided chest pressure which was started yesterday and got worse since this morning. She said she got raised from the shelter and she ran out of for a Cardizem 120 mg tablets tw ice a day for the past 5 days. She denies having any tachycardia. She has history of SVT and also has a heart block and she had a pacemaker. She denies having any fever or chills and denies having any nasal congestion or cough. She denies having any abdominal pain, unilateral swelling of the legs or leg cramps. Timing/Duration: 24 hours Severity/Quality: moderate Location: other (on left side underneath the pacemaker) Radiation: no radiation Activities at Onset: none Prior CP/Workup: other (pacemaker) ASA po ACID CONDITIONING WORKER: No NTG SL ACID CONDITIONING WORKER: No Associated Symptoms: No abdominal pain, No back pain, No dizziness, No edema, No headache, No shortness of breath Allergies and Home Medications Allergies Coded Allergies: aspirin (Unverified Allergy, Unknown, RASH, 04/29/19) codeine (Verified Allergy, Unknown, 04/29/19) Home Medications Albuterol 8.5 Gm Hfa.aer.ad, 2 PUFF IH Q6H PRN, (Reported) PRN SHORTNESS OF BREATH Cephalexin 500 Mg Capsule, 500 MG PO TID Prescribed by: HANDY MENDEZ on 05/01/19 0950 Cyclobenzaprine HCl 10 Mg Tablet, 10 MG PO PRN, (Reported) Desvenlafaxine 50 Mg Tab.er.24, 50 MG PO DAILY, (Reported) Diltiazem HCl 120 Mg Cap.er.24h, 120 MG PO BID, (Reported) Fluticasone Propionate 9.9 Ml [place].susp, 1 SPRAY NS DAILY PRN for PRN, (Reported) 1 SPRAY EACH NARE DAILY Fluticasone/Vilanterol 1 Each Blst.w.dev, 1 EACH IH DAILY, (Reported) Gabapentin 400 Mg Capsule, 400 MG PO TID, (Reported) Lisinopril 10 Mg Tablet, 10 MG PO DAILY, (Reported) Ropinirole HCl 3 Mg Tablet, 3 MG PO HS, (Reported) Tramadol HCl 50 Mg Tablet, 50 MG PO PRN, (Reported) Trazodone Hcl 100 Mg Tab, 100 MG PO HS, (Reported) Review of Systems Review of Systems Constitutional: see HPI EENTM: See HPI Cardiovascular: Chest Pain Gastrointestinal: No Symptoms Reported, See HPI Genitourinary: No Symptoms Reported Musculoskeletal: no symptoms reported Skin: no symptoms reported Psychiatric/Neurological: No Symptoms Reported Past Qvrueyn-Iuunbv-Uppyag Hx Patient Social History Type Used: Cigarettes 2nd Hand Smoke Exposure: Yes Recent Foreign Travel: No Contact w/Someone Who Travel: No Recent Infectious Disease Expo: No Recent Hopitalizations: No Immunizations Up To Date Tetanus Booster (TDap): More than 5yrs Date of Pneumonia Vaccine: Feb 20, 2013 Seasonal Allergies Seasonal Allergies: No Past Medical History Surgeries: Yes (CONE BX, EAR SX, ATTEMPTED ABLATION OF SVT) Section, Hysterectomy, Pacemaker, Tonsillectomy Respiratory: Yes Asthma, COPD Cardiac: Yes (Pacemaker for 3rd degree heart block, SVT, attempted ablation) Hypertension, Irregular Heartbeat Neurological: Yes (RLS) Reproductive Disorders: Yes (MILEY III) Genitourinary: No Gastrointestinal: No Musculoskeletal: No Endocrine: No HEENT: No Cancer: No Psychosocial: Yes Anxiety, Bipolar, Depression Integumentary: No Blood Disorders: No Physical Exam Vital Signs Vital Signs - First Documented 09/04/19 15:19 Temp 36.8 Pulse 103 Resp 18 B/P (MAP) 177/93 (121) Pulse Ox 97 O2 Delivery Room Air Capillary Refill : Less Than 3 Seconds Height, Weight, BMI Height: 5'2.00" Weight: 147lbs. 0.0oz. 66.809314pw; 24.00 BMI Method: General Appearance: WD/WN HEENT: PERRL/EOMI, TMs Normal, Normal ENT Inspection, Pharynx Normal Neck: Full Range of Motion, Normal Inspection, Non Tender, Supple Respiratory: Chest Non Tender, Lungs Clear, Normal Breath Sounds, No Accessory Muscle Use, No Respiratory Distress Cardiovascular: Regular Rate, Rhythm, Normal Peripheral Pulses Gastrointestinal: Normal Bowel Sounds, No Organomegaly, No Pulsatile Mass, Non Tender Extremity: Normal Capillary Refill, Normal Inspection, Normal Range of Motion, Non Tender, No Calf Tenderness, No Pedal Edema Neurologic/Psychiatric: Alert, Oriented x3, No Motor/Sensory Deficits, Normal Mood/Affect, contract administrative assistant II-XII Norm as Tested Skin: Normal Color, Warm/Dry Progress/Results/Core Measures Results/Orders Lab Results Laboratory Tests Test 09/04/19 15:30 09/04/19 18:20 Range/Units White Blood Count 8.7 4.3-11.0 10^3/uL Red Blood Count 4.46 4.35-5.85 10^6/uL Hemoglobin 12.9 11.5-16.0 G/DL Hematocrit 38 35-52 % Mean Corpuscular Volume 86 80-99 FL Mean Corpuscular Hemoglobin 29 25-34 PG Mean Corpuscular Hemoglobin Concent 34 32-36 G/DL Red Cell Distribution Width 13.0 10.0-14.5 % Platelet Count 308 130-400 10^3/uL Mean Platelet Volume 10.4 7.4-10.4 FL Neutrophils (%) (Auto) 65 42-75 % Lymphocytes (%) (Auto) 26 12-44 % Monocytes (%) (Auto) 6 0-12 % Eosinophils (%) (Auto) 2 0-10 % Basophils (%) (Auto) 1 0-10 % Neutrophils # (Auto) 5.7 1.8-7.8 X 10^3 Lymphocytes # (Auto) 2.3 1.0-4.0 X 10^3 Monocytes # (Auto) 0.5 0.0-1.0 X 10^3 Eosinophils # (Auto) 0.2 0.0-0.3 10^3/uL Basophils # (Auto) 0.1 0.0-0.1 10^3/uL Prothrombin Time 12.2 12.2-14.7 SEC INR Comment 0.9 0.8-1.4 Sodium Level 143 135-145 MMOL/L Potassium Level 4.1 3.6-5.0 MMOL/L Chloride Level 107 98-107 MMOL/L Carbon Dioxide Level 24 21-32 MMOL/L Anion Gap 12 5-14 MMOL/L Blood Urea Nitrogen 6 L 7-18 MG/DL Creatinine 0.77 0.60-1.30 MG/DL Estimat Glomerular Filtration Rate > 60 BUN/Creatinine Ratio 8 Glucose Level 99 70-105 MG/DL Calcium Level 9.2 8.5-10.1 MG/DL Corrected Calcium 9.0 8.5-10.1 MG/DL Magnesium Level 2.2 1.6-2.4 MG/DL Total Bilirubin 0.2 0.1-1.0 MG/DL Aspartate Amino Transf (AST/SGOT) 19 5-34 U/L Alanine Aminotransferase (ALT/SGPT) 11 0-55 U/L Alkaline Phosphatase 98 40-136 U/L Troponin I < 0.30 < 0.30 <0.30 NG/ML Total Protein 6.9 6.4-8.2 GM/DL Albumin 4.2 3.2-4.5 GM/DL Lipase 26 8-78 U/L My Orders Orders - BETSY RODRIGUEZ MD Cbc With Automated Diff (09/04/19 15:19) Magnesium (09/04/19 15:19) Chest 1 View Ap/Pa Only (09/04/19 15:19) Ekg Tracing (09/04/19 15:19) Comprehensive Metabolic Panel (09/04/19 15:19) Protime With Inr (09/04/19 15:19) Nitroglycerin 0.4 Mg Btl 25's (Nitrostat (09/04/19 15:30) Ed Iv/Invasive Line Start (09/04/19 15:19) Troponin I Fs (09/04/19 15:19) Lipase (09/04/19 15:19) Troponin I Fs (09/04/19 17:59) Acetaminophen Tablet (Tylenol Tablet) (09/04/19 19:15) Medications Given in ED Current Medications Medications Dose Ordered Sig/David Route Start Time Stop Time Status Last Admin Dose Admin Nitroglycerin 0.4 mg UD PRN SL 09/04/19 15:30 09/04/19 15:55 0.4 MG Vital Signs/I&O 09/04/19 15:19 Temp 36.8 Pulse 103 Resp 18 B/P (MAP) 177/93 (121) Pulse Ox 97 O2 Delivery Room Air Blood Pressure Mean: 121 Progress Progress Note #1: Time: 17:16 Progress Note Patient's chest pain got better after nitroglycerin. Cardiac enzymes are negative. We'll get repeat troponin and if that is negative we'll send the patient home and advised to follow-up with the primary care doctor. She is comfortable with the plan. Progress Note #2: Time: 19:07 Progress Note Patient was informed about -2 sets of cardiac enzymes. She was complaining of headache and she said she has some migraines. We'll give her Tylenol. We'll give the prescription for her diltiazem and advised to follow-up with the primary care doctor. She is comfortable with the plan. Initial ECG Impression Date: Sep 04, 2019 Initial ECG Impression Time: 15:08 Initial ECG Rhythm: Normal Sinus Initial ECG Impression: Normal Diagnostic Imaging Diagonstic Imaging: Xray (neg) Departure Impression Primary Impression: Chest pain Qualified Codes: R07.9 - Chest pain, unspecified Disposition: 01 HOME, SELF-CARE Condition: Improved Departure-Patient Inst. Decision time for Depature: 19:08 Referrals: [facility] (PCP/Family) Primary Care Physician Patient Instructions: Chest Pain (DC) Add. Discharge Instructions: Follow-up with her primary care doctor in 2-3 days. Drink a lot of oral fluids and take adequate rest. Continue home medications. Take diltiazem as prescribed. Return to the emergency room if symptoms worsens or has any concern. All discharge instructions reviewed with patient and/or family. Voiced understanding. Scripts Diltiazem HCl (Diltiazem HCl) 120 Mg Tablet 120 MG PO BID, #30 TAB Prov: BETSY RODRIGUEZ MD 09/04/19 BETSY RODRIGUEZ MD Sep 04, 2019 16:14
[2019-09-04] MEDS ORDERED: DILT120T3 PO (19:10)
[2019-09-04 19:14] VITALS: BP 153/96
[2019-09-04] MEDS ORDERED: ACETAMINOPHEN 500 MG TAB (TYLENOL) PO ONE (19:15)
== END 2019-09-04 19:19 | disposition home or self-care (01) ==
LOC: EDUNIT# 15:01 → ER FS 15:02
DX: R07.89 Other chest pain (principal); J44.9 Chronic obstructive pulmonary disease, unspecified; I10 Essential (primary) hypertension; F41.9 Anxiety disorder, unspecified; F31.9 Bipolar disorder, unspecified; Z95.0 Presence of cardiac pacemaker; Z88.6 Allergy status to analgesic agent; Z88.5 Allergy status to narcotic agent; Z79.51 Long term (current) use of inhaled steroids; Z77.22 Contact with and (suspected) exposure to environmental tobacco smoke (acute) (chronic); Z90.710 Acquired absence of both cervix and uterus; Z90.89 Acquired absence of other organs
CPT/HCPCS: 36415; 71045; 80053; 83690; 83735; 84484; 85025; 85610; 93005